=== PATIENT | female | born 1975 ===

== ENCOUNTER 2022-07-06 05:18 | Day surgery (SDC) | payer OTHER ==
[~2022-07-06 05:18] MED LIST: MAXFE CAPLET1 EAC1 PO
[2022-07-06] MEDS ORDERED: ZITHROMAX500 MG PO (09:23)
[2022-07-06] MEDS ORDERED: IBU400 MG PO (09:23)
== END 2022-07-06 11:45 | disposition home or self-care (01) ==
LOC: CIR.AMB 05:18
PROVIDERS: ATTEND Obstetrics & Gynecology
DX: N87.9 Dysplasia of cervix uteri, unspecified (principal); Z30.432 Encounter for removal of intrauterine contraceptive device; Z20.822 Contact with and (suspected) exposure to COVID-19